=== PATIENT | female | born 1970 | race Caucasian/White ===

== ENCOUNTER → 2016-10-21 | Outpatient (CLI) | payer OTHER ==
[~2016-10-21] MED LIST: AMPH30TA2 PO; BCTROWC TOP; BUTTERBUR PO; DIAZ-165 PO; DICL1GEL28 TOP; DIHY1INJ2 PO; DPPI400 IM; HYDR-3785 PO; HYDR4TAB78 PO; IBUP1CAP9 PO; LEVO88TA PO; LIDOCAINE TOP; MECL1TAB42 PO; METH-307 PO; MULT-506 PO; NORT50CA PO; Oxycodone PO; PROM25TA PO; Probiotic PO; SUMA100T16 PO; TOPI200T14 PO; TRDI60 IM; TRIA0.5O EX; ULT/50 PO; Vitamin b12 PO; ZOLP10TA PO; [UNRECOGNIZED DRUG - CODE]; vitamin d3 PO
--- NOTE | 2016-10-21 15:45 | DIAGNOSTIC IMAGING REPORT ---
LUMBAR SPINE MRI HISTORY: Back pain. Peripheral neuropathy. LOWER BACK PAIN TECHNIQUE: Multiplanar multisequence MRI of the lumbar spine was performed without the use of contrast. COMPARISON: None. FINDINGS: For the purpose of the report the L5-S1 disc space will be located on axial image 27 of 30. Normal signal characteristics of the vertebral bodies and intervertebral disc. Mild disc desiccation L5-S1. L1-L2: No significant central canal or neural foraminal narrowing. L2-L3: No significant central canal or neural foraminal narrowing. L3-L4: No significant central canal or neural foraminal narrowing. L4-L5: No significant central canal or neural foraminal narrowing. L5-S1: No significant central canal or neural foraminal narrowing. IMPRESSION: Negative study of the lumbar spine Electronically signed by: Romie Rowe M.D. 10/21/2016 3:43 PM Dictated Date/Time: 10/21/2016 3:42 PM
== END | disposition home or self-care (01) ==
LOC: C.MRIBC 14:38
PROVIDERS: ATTEND Psychiatry & Neurology Neurology
DX: M54.5 Low back pain (principal)

== ENCOUNTER → 2016-11-29 | Outpatient (CLI) | payer OTHER ==
[2016-11-29 13:43] LABS: HEMATOCRIT 45.3 % (37-47); MEAN CELL VOLUME 86.3 fL (80-100); MEAN CORPUSCULAR HEMOGLOBIN 28.8 pg (25-34); MEAN CORPUSCULAR HGB CONC 33.3 g/dl (32-36); MEAN PLATELET VOLUME 8.8 fL (7.4-10.4); PLATELET COUNT 334 K/uL (130-400); RED BLOOD COUNT 5.25 M/uL (4.2-5.4); WHITE BLOOD COUNT 10.25 K/uL (4.8-10.8)
[2016-11-29 14:29] LABS: BASO % 1.4 %; BASO ABS # 0.14 K/uL (0-0.2); COMPLETE YES; EOS % 2.2 %; IG% 6.7 %; LYMPH % 32.6 %; LYMPH ABS # 3.34 K/uL (1.2-3.4); MONO % 6.6 %; NEUT % 50.5 %
[2016-11-29 16:52] LABS: ALT/SGPT 15 U/L (12-78); AST/SGOT 5 U/L (15-37); BLOOD UREA NITROGEN 9 mg/dl (7-18); BUN/CREATININE RATIO 7.3 (10-20); CALCIUM 8.6 mg/dl (8.5-10.1); CARBON DIOXIDE 24 mmol/L (21-32); CHLORIDE 111 mmol/L (98-107); GLUCOSE 88 mg/dl (70-99); POTASSIUM 3.6 mmol/L (3.5-5.1); SODIUM 143 mmol/L (136-145)
[2016-11-29 17:03] LABS: ALB/GLOB RATIO 0.9 (0.9-2); ALKALINE PHOSPHATASE 85 U/L (45-117)
--- NOTE | 2016-12-05 10:12 | CODING QUERY MEDICAL NECESSITY ---
SUPPORTING DIAGNOSIS NEEDED A supporting diagnosis is required for the test/procedure performed on this patient in order for us to be reimbursed by the patient's insurance. Please provide a supporting diagnosis for the following test/procedure listed below next to the test name along with your signature. *If there is no additional diagnosis for this patient that would support the following test/procedure please document that below next to the test/procedure. Test(s)/Procedure(s) that require a supporting diagnosis: DOS 11/29 * Vitamin D DIAGNOSIS: * Vitamin B12 DIAGNOSIS: Provider Signature: Date: Thank you Shante Roberto Health Information Management Once completed, please kindly fax back to [phone] For questions please call [phone]
== END | disposition home or self-care (01) ==
LOC: C.LABBC 12:19
PROVIDERS: ATTEND Internal Medicine
DX: D75.89 Other specified diseases of blood and blood-forming organs (principal); R53.82 Chronic fatigue, unspecified; E55.9 Vitamin D deficiency, unspecified; E53.8 Deficiency of other specified B group vitamins

== ENCOUNTER → 2016-12-10 | Outpatient (CLI) | payer OTHER ==
[~2016-12-10] MED LIST changes: +ASCO10003 PO; +BIOT1TAB5 SL; +LEVO75TA PO; +PANC6000 PO
[2016-12-10 14:17] LABS: BLOOD UREA NITROGEN 12 mg/dl (7-18); BUN/CREATININE RATIO 9.2 (10-20); CALCIUM 8.5 mg/dl (8.5-10.1); CARBON DIOXIDE 23 mmol/L (21-32); CHLORIDE 109 mmol/L (98-107); GLUCOSE 91 mg/dl (70-99); POTASSIUM 3.6 mmol/L (3.5-5.1); SODIUM 141 mmol/L (136-145)
== END | disposition home or self-care (01) ==
LOC: C.LABBC 10:53
PROVIDERS: ATTEND Internal Medicine
DX: Z00.00 Encounter for general adult medical examination without abnormal findings (principal)

== ENCOUNTER → 2017-02-05 | Outpatient (CLI) | payer OTHER ==
[~2017-02-05] MED LIST changes: -ULT/50 PO
[2017-02-05 13:49] LABS: URINE PROTIEN/CREAT RATIO 0.1 (0-0.2); URINE TOTAL PROTEIN 11.1 mg/dl (0-11.9)
[2017-02-05 13:56] LABS: BLOOD UREA NITROGEN 12 mg/dl (7-18); BUN/CREATININE RATIO 10.3 (10-20); CALCIUM 8.8 mg/dl (8.5-10.1); CARBON DIOXIDE 20 mmol/L (21-32); CHLORIDE 111 mmol/L (98-107); GLUCOSE 82 mg/dl (70-99); MAGNESIUM 2.3 mg/dl (1.8-2.4); PHOSPHORUS 3.5 mg/dl (2.5-4.9); POTASSIUM 3.7 mmol/L (3.5-5.1); SODIUM 142 mmol/L (136-145)
[2017-02-05 14:19] LABS: URINE APPEARANCE CLEAR (CLEAR); URINE BILIRUBIN NEG (NEG); URINE COLOR YELLOW; URINE EPITHELIAL CELL AUTO 20-30 /lpf (0-5); URINE NITRITE NEG (NEG); URINE PH 5.5 (4.5-7.5); URINE SPECIFIC GRAVITY 1.013 (1.000-1.030); UROBILINOGEN NEG (NEG)
[2017-02-05 14:26] LABS: MANUAL MICROSCOPIC REQUIRED? NO; REVIEW REQ? NO
== END | disposition home or self-care (01) ==
LOC: C.LABBC 10:53
PROVIDERS: ATTEND Internal Medicine Nephrology
DX: N18.3 Chronic kidney disease, stage 3 (moderate) (principal)

== ENCOUNTER → 2017-03-07 | Outpatient (CLI) | payer OTHER ==
[~2017-03-07] MED LIST changes: -ASCO10003 PO; -BIOT1TAB5 SL; -LEVO75TA PO; -PANC6000 PO
[2017-03-07 13:56] LABS: BLOOD UREA NITROGEN 18 mg/dl (7-18); BUN/CREATININE RATIO 12.6 (10-20); CALCIUM 9.6 mg/dl (8.5-10.1); CARBON DIOXIDE 17 mmol/L (21-32); CHLORIDE 111 mmol/L (98-107); GLUCOSE 90 mg/dl (70-99); PHOSPHORUS 3.9 mg/dl (2.5-4.9); POTASSIUM 3.7 mmol/L (3.5-5.1); SODIUM 140 mmol/L (136-145)
[2017-03-07 14:04] LABS: URINE APPEARANCE TURBID (CLEAR); URINE BILIRUBIN NEG (NEG); URINE COLOR YELLOW; URINE EPITHELIAL CELL AUTO >30 /lpf (0-5); URINE NITRITE NEG (NEG); URINE SPECIFIC GRAVITY 1.026 (1.000-1.030); UROBILINOGEN NEG (NEG)
[2017-03-07 14:09] LABS: MANUAL MICROSCOPIC REQUIRED? NO; REVIEW REQ? NO
== END | disposition home or self-care (01) ==
LOC: C.LABBC 09:41
PROVIDERS: ATTEND Internal Medicine
DX: R79.9 Abnormal finding of blood chemistry, unspecified (principal); R94.6 Abnormal results of thyroid function studies; R39.9 Unspecified symptoms and signs involving the genitourinary system

== ENCOUNTER → 2017-06-11 | Outpatient (CLI) | payer OTHER | END | disposition home or self-care (01) | LOC: C.PAPS 17:05 | PROVIDERS: ATTEND Obstetrics & Gynecology | DX: R87.610 Atypical squamous cells of undetermined significance on cytologic smear of cervix (ASC-US) (principal) ==

== ENCOUNTER → 2017-10-14 | Outpatient (CLI) | payer OTHER ==
[~2017-10-14] VITALS: Ht 156.2 cm; Wt 116.4 kg
[~2017-10-14] MED LIST changes: +ASCO10003 PO; +BIOT1TAB5 SL; +LEVO75TA PO; -LEVO88TA PO; +PANC6000 PO
[2017-10-14 14:41] VITALS: BP 154/91; PULSE 109; Ht 156.2 cm; Wt 116.4 kg
== END | disposition home or self-care (01) ==
LOC: C.NEUR 14:20
PROVIDERS: ATTEND Internal Medicine Pulmonary Disease
DX: R53.82 Chronic fatigue, unspecified (principal); R51 Headache; G89.4 Chronic pain syndrome; R06.83 Snoring; G47.8 Other sleep disorders; E66.01 Morbid (severe) obesity due to excess calories; G47.00 Insomnia, unspecified; Z68.42 Body mass index [BMI] 45.0-49.9, adult

== ENCOUNTER → 2017-10-20 | Outpatient (CLI) | payer OTHER ==
[2017-10-20 13:55] LABS: FOLLICLE STIMULAT HORMONE 17.83 IU/L; LUTEINIZING HORMONE 6.02 IU/L
== END | disposition home or self-care (01) ==
LOC: C.LABBC 11:35
PROVIDERS: ATTEND Obstetrics & Gynecology
DX: E06.3 Autoimmune thyroiditis (principal); N95.1 Menopausal and female climacteric states

== ENCOUNTER → 2017-11-13 | Outpatient (CLI) | payer OTHER ==
--- NOTE | 2017-11-14 06:21 | PAP/PSG TECHNICIAN REPORT ---
[facility] Regional Facilities Manager Polysomnogram Report Study name: None Report date: 11/14/2017 Study date: 11/13/2017 Referring Physician: Khadar Vieyra M.D. Name: YAYA BEE Nadine Interpreting Physician: Khadar Vieyra M.D. Date of : 1970 Regional Facilities Manager: Mandie Baca RPSGT. Sex: Female Age: 47 Study Type: PSG Weight: 256 lbs 16.5 in Height: 47 years, Height 5' 1.5" Neck Circum: BMI: 47.58 Medications: AMPHETAMINE-DEXTROAMPHETAMINE 30 MG, CREON [id number] UNIT, DEPO-PROVERA 150 MG/ML, DIAZEPAM 5 MG, DIHYDOERGOTAMINE MESYLATE 1 MG/ML, HYDROCODONE-HOMATROPINE 5-1.5 MG/5 ML, HYDROMORPHONE 8 MG, HYDROXYZINE 50 MG, IMITREX 100 MG, KETAMINE 10 MG/ML, KETOROLAC TROMETHAMINE, LEVOTHYROXINE 75 MCG, LIDOCAINE, MECLIINE 25 MG, MEDROXYPROGESTERON 150 MG/ML, METHOCARBAMOL 750 MG, MULTI VIT, NORTIRPTYLINE 50 MG, OXYCODONE, PROBIOTIC, PROMETHAZINE 25 MG, SENOKOT, TOPIRAMATE 200 MG, TRAIMCINOLONE ACETONIDE, VIT B-12, VIT C, VIT D, VOLTAREN 1%, ZOLPIDEM 10 MG Patient History 47 yr-old female here for a baseline study. She has many medical problems. She has a history of insomnia, frequent awakenings, and daytime sleepiness. She stated that her sleep is very disrupted from pain and movement. Her [place] scale is 13. The test was started on room air. ETCO2 testing was not utilized during this study. Room 1 Parameters Monitored NPSG: E1-M2, E2-M1, Fp1-M2, Fp2-M1, F3-M2, F4-M2, F4-M1, C3-M2, C4-M2, C4-M1, O1-M2, O2-M2, O2-M1, T3-M2, T4-M1, P3-M2, P4-M1, CHIN1, CHIN2, HR, EKG, Legs, PFLOW, SNOR, FLOW, CFLOW, Tidal Volume, THOR, ABDO, SpO2, PLTH, CPRESS, ETCO2 Wave, ETCO2, pH Sleep Architecture Sleep Stages Time at Lights Off 10:23:09 PM STAGES Time (min.) TST (%) Time at Lights On 5:22:09 AM Wake 123.0 -- Total Recording Time (TRT) 419.00 min. N1 7.5 3 Total Sleep Period (TSP) 321.0 min. N2 285.0 96 Total Sleep Time (TST) 296.0min. N3 3.5 1 Awake Time 123.0 min. REM 0.0 0 Wake after Sleep Onset 103.0 min. Sleep Efficiency (SE) 71 % Sleep Onset Latency (BRUCE) 20.0 min. Number of Stage 1 Shifts None Awakenings 6 Stage Changes 26 Number of REM periods N/A REM 0.0 0 REM Latency NONE min. NREM 296.0 100 Body Position Analysis Supine Right Left Side Prone Vertical Total Sleep Time (min.) 16.7 109.5 186.5 296.00 0.0 0.2 Total Sleep Time (%) 0% 37% 63% 100 0% N/A% Total Sleep Time REM (min.) 0.0 0.0 0.0 None 0.0 0.0 Total Sleep Time NREM (min.) 0.0 109.5 186.5 None 0.0 0.0 Intermittent Wake (min.) 16.7 14.1 92.1 None 0.0 0.2 Total Sleep Period (%) 0% None None None None None Arousals Myoclonus (PLM) * Events Count Index Events Count Index Spontaneous 8 2 Events Awake (PLMW) 37 18.0 Respiratory 0 0.0 Events Asleep w/ Arousal (PLMA) 2 0.4 PLM 2 0 Events Asleep w/o Arousal (PLMS) 14 2.8 Snoring 3 1 Total Asleep 16 3.2 Total 13 3 Total 53 8 Respiratory Analysis * CA OA MA CH H RERA Total Count 0 0 0 0 1 0 1 Index 0.0 0.0 0.0 0 0.2 0 0.2 Mean Duration 0.0 0.0 0.0 0.00 10.2 0.0 10.2 Longest Duration 0.0 0.0 0.0 0.00 0.0 0.0 10.2 Respiratory Event Summary Total Supine ~Supine Right Left Prone REM NREM Apneas Count 0 N/A 0 0 0 N/A N/A 0 Index 0.0 N/A 0 0.0 0.0 N/A N/A 0 Hypopneas (4% Desat) Count 1 N/A 1 0 1 N/A N/A 1 Index 0.2 N/A 0 0.0 0.3 N/A N/A 0.2 Apneas & All Hypopneas Count 1 N/A 1 0 1 N/A N/A 1 Index 0.2 N/A 0 0 0 N/A N/A 0.2 Respiratory Events (Pet Sitter+All Hyp+RERA) Count 1 N/A 1 0 1 N/A N/A 1 Index 0.2 N/A 0 0.0 0.3 N/A N/A 0.2 Respiratory Related Arousal Count 0 N/A 0 0 0 N/A N/A 0 Index 0.0 N/A 0 0 0 N/A N/A 0 Snoring Analysis Supine Right Left Prone REM NREM Total Snore duration 44.3 min Snores count N/A 1,935 115 N/A N/A 2,050 2,050 Snore mean duration 1.3 Sec Snores index N/A 1,060 37 N/A N/A 415.5 415.5 TST with snoring (%) 15.0% Desaturation Event Summary: Minimum %SpO2 Event Count Mean/Min/Max Duration(sec.) Desaturation Index % Time In Bed > 90 19 26.8 / 4.0 / 56.3 7.9 36.9 86 - 90 12 33.2 / 6.0 / 55.8 3.2 57.3 81 - 85 2 22.9 / 17.0 / 28.8 5.2 5.9 76 - 80 0 N/A 0.0 0.0 71 - 75 0 N/A 0.0 0.0 66 - 70 0 N/A 0.0 0.0 61 - 65 0 N/A 0.0 0.0 56 - 60 0 N/A 0.0 0.0 51 - 55 0 N/A 0.0 0.0 < 50 0 N/A 0.0 0.0 Total REM NREM Awake <50% 0.0 min. 0.0 min. 0.0 min. 0.0 min. 51 - 60% 0.0 min. 0.0 min. 0.0 min. 0.0 min. 61 - 70% 0.0 min. 0.0 min. 0.0 min. 0.0 min. 71 - 80% 0.0 min. 0.0 min. 0.0 min. 0.0 min. 81 - 90% 246.8 min. 0.0 min. 207.1 min. 39.7 min. 91 - 100% 144.2 min. 0.0 min. 88.9 min. 55.4 min. Average 89 0 89 92 Minimum SpO2 74 N/A 81 74 Desaturation Event Index 4.0 0.0 0.8 11.7 # Desat. Events below 89% 17 N/A 3 14 Time(%) with Saturation below 89% 48.9 0.0 41.9 7.0 Time(min.) with Saturation below 89% 191.2 0.0 163.9 27.3 Time (mins) REM (mins) NREM (mins) % of TST SpO2 Below 90% 3 N/A N3 61.7 SpO2 Below 88% 1 0 0 48 Heart Rate Analysis Min (bpm) Max (bpm) Average (bpm) Awake 76 127 89 NREM 79 93 85 REM N/A N/A N/A Overall 79 93 85 Supplemental O2 Values Minimum O2 level: None Value Start Time End Time Regional Facilities Manager Comments Ms. Bee slept in the right and left positions. No cardiac arrhythmias or PLMs noted. No bruxism noted. Snoring was noted and scored as a 2 on a scale of 1 through 5. (0=no snoring, 5=snoring loud enough to be heard through a closed door or down the [address] way) She awoke to use the restroom one time during the night. Ms. Bee stated that she slept better than usual. She also stated that her pain pill helped her sleep but that she did wake up with a headache. The final report will be interpreted and signed by a sleep physician. The completed physician report will then be placed in the patient medical record. Therapy (cm H2O) 0 TIB (min.) 419.0 TST (min.) 296.0 Sleep Onset (min.) 20.0 REM Onset From Sleep (min.) NONE Sleep Efficiency % 71 Wakefulness (%) 29 Wakefulness (min.) 123.0 NREM 1 (%) 3 NREM 1 (min.) 7.5 NREM 2 (%) 96 NREM 2 (min.) 285.0 NREM 3 (%) 1 NREM 3 (min.) 3.5 REM (%) 0 REM (min.) 0.0 # Arousals 13 Arousal Index 3 # Snore 2,050 Snore Index 415.5 AHI 0.2 AHI Supine N/A AHI Non-Supine 0 NREM AHI 0.2 REM AHI N/A RDI 0.2 # Obstructive Apnea 0 # Central Apnea 0 # Mixed Apnea 0 # Hypopneas 1 RERAs 0 Total Respiratory Events 1 Time Below SpO2 89% (min.) 163.9 Mean NREM SpO2 (%) 89 Mean REM SpO2 (%) N/A Mean Sleep SpO2 (%) 89 Min NREM SpO2 (%) 81 Min REM SpO2 (%) N/A Position Supine (min.) 16.7 Position Non-supine (min.) 296.0 LM Index Sleep 3.2 LM Index NREM 3.2 LM Index REM N/A Mean Heart Rate (bpm) 85 Min Heart Rate (bpm) 79
--- NOTE | 2017-11-21 09:59 | POLYSOMNOGRAPH REPORT ---
CLINICAL DATA: A 47-year-old female with BMI of 47.6 referred by myself, Dr. Red and Dr. Savage for evaluation of fragmented sleep architecture, chronic pain syndrome, snoring and sleep talking. Her sleep is very disrupted from pain and movement. Her [place] sleepiness score is 13/24. SLEEP ARCHITECTURE: Total sleep period was 321 minutes. Total sleep time was 296 minutes all non-REM sleep. Sleep latency was 20 minutes. REM was not achieved. Sleep efficiency was 71%. Wake after sleep onset was elevated at 103 minutes. Sleep consisted of stage N1 3%, stage N2 96%, and stage N3 1%. AROUSAL DATA: 13 arousals were recorded for an index of 3 per hour. PLM DATA: 16 limb movements during sleep were noted for an index of 3.2 per hour with arousal index of 0.4 per hour. RESPIRATORY DATA: There was no sleep apnea seen. The AHI was 0.2. There was 1 hypopneic episode 10 seconds in duration. OXIMETRY DATA: Transient hypoxemia was seen. Oxygen flavia was 81%. Mean saturation was 89%. Time below 88% was 1 minute. EKG: Heart rates ranged from 79-93 beats per minute. EDUCATIONAL TECHNOLOGY COORDINATOR'S COMMENTS: The patient slept in the right and left position. Snoring was mild, rated 2 on a scale of 1-5. The patient stated that she slept better than usual. IMPRESSION: No evidence of clinically significant sleep apnea/hypopnea, nocturnal hypoxemia, abnormal limb movements during sleep or parasomnias. RECOMMENDATIONS: The patient should continue to practice good sleep hygiene and continue on her pain medications. YUSUF
== END | disposition home or self-care (01) ==
LOC: C.NEUR 20:00
PROVIDERS: ATTEND Internal Medicine Pulmonary Disease
DX: G47.9 Sleep disorder, unspecified (principal); E66.01 Morbid (severe) obesity due to excess calories

== ENCOUNTER → 2017-12-01 | Outpatient (CLI) | payer OTHER | END | disposition home or self-care (01) | LOC: C.LAB1850 13:59 | PROVIDERS: ATTEND Internal Medicine | DX: R94.6 Abnormal results of thyroid function studies (principal) ==